=== PATIENT | female | born 1990 | race Caucasian/White ===

== ENCOUNTER 2022-04-18 10:35 | Emergency (ER) | payer BC, SELFPAY ==
[2022-04-18 11:35] VITALS: BP 122/61; PULSE 79; RESP 18; TEMP 36.5; O2SAT 98
--- NOTE | 2022-04-18 12:02 | ED.URI ---
HPI - URI/Sore Throat General Chief Complaint: Upper Respiratory Infection Stated Complaint: Sore Throat,Right Eye Irritation Time Seen by Provider: 04/18/22 12:02 History of Present Illness HPI Narrative: 31-year-old female presented for complaint of sore throat for 3 days. Endorses fever at the onset. She also endorses right eye redness and itching since last night. Denies crust or drainage, vision changes, or photophobia. She denies shortness of breath, wheezing, nausea, vomiting, diarrhea, fevers or chills at this time. She is not taking anything for symptoms. She denies sick contacts. Related Data Allergies Allergy/AdvReac Type Severity Reaction Status Date / Time No Known Allergies Allergy Verified 04/18/22 11:42 Review of Systems Review of Systems: CONSTITUTIONAL: Denies body aches, fever, chills, or sweats. EYES: Denies visual changes, endorses redness and itching right eye ENT: Denies rhinorrhea, congestion, or otalgia. CARDIOVASCULAR: Denies chest pain, palpitations, or edema. RESPIRATORY: Denies dyspnea. GASTROINTESTINAL: Denies abdominal pain, nausea, vomiting, or diarrhea. SKIN: Denies rash, itching, or wounds. MUSCULOSKELETAL: Denies back pain, joint pain, or myalgia. NEUROLOGIC: Denies headache Exam Narrative: GENERAL: well-appearing, no acute distress. EYES: right conjunctival injection, yellow drainage. EOMI. PERRLA ENT: Mucous membranes moist. TMs pearly gonzáles with normal light reflex bilaterally; no tragal tenderness. Oropharynx erythematous with Tonsillar enlargement 3+ with exudate. No drooling, no hoarseness, no trismus, uvula midline. No tripod positioning, hot potato voice, or soft palate swelling. NECK: Supple. Bilateral anterior cervical lymphadenopathy CHEST: Clear to auscultation, breath sounds equal. No respiratory distress, speaks in full sentences. HEART: Regular rate and rhythm. No murmur heard. SKIN: Warm, dry, no rash. NEURO: Alert and oriented x3. Course Course Emergency Course: Patient is aware of diagnosis, understands and agrees to treatment plan. Anticipatory guidance given. Patient agrees to follow-up as directed and is aware of reasons to seek care at the emergency department. Portions of this record may have been created with voice recognition software Level of Care: Express Care Visit Vital Signs Vital signs: Vital Signs Temperature 97.7 F 04/18/22 11:35 Pulse Rate 79 04/18/22 11:35 Respiratory Rate 18 04/18/22 11:35 Blood Pressure 122/61 04/18/22 11:35 Pulse Oximetry 98 04/18/22 11:35 Oxygen Delivery Room Air 04/18/22 11:35 Temperature 97.7 F 04/18/22 11:35 Pulse Rate 79 04/18/22 11:35 Respiratory Rate 18 04/18/22 11:35 Blood Pressure 122/61 04/18/22 11:35 Pulse Oximetry 98 04/18/22 11:35 Oxygen Delivery Room Air 04/18/22 11:35 MDM - URI/Sore Throat MDM Narrative Medical decision making narrative: Pos strep result reviewed with pt. Advise supportive treatments. Patient is appropriate for outpatient treatment and follow-up. Differential Diagnosis Differential diagnosis: Likely upper respiratory infection, viral infection and pharyngitis Lab Data Labs: Strep Screen Positive Group A Strep *(Reference Range: Negative)* Discharge Plan Discharge Clinical Impression: Strep pharyngitis, Acute bacterial conjunctivitis of right eye Patient Disposition: Home, Self-Care Condition: Stable Instructions: Antibiotic Form, Strep Throat (ED) Additional Instructions: - Take the antibiotic as directed. Fever and sore throat typically resolve within one to three days. Most patients can return to work after 24 hours of antibiotic therapy, provided you are fever free and otherwise well. -Eat and drink things that are easy to swallow, like soft foods, cool liquids, tea with honey, or popsicles . -Salt water gargles and/or may use topical anesthetic ( Chlo
== END 2022-04-18 12:45 | disposition home or self-care (01) ==
PROVIDERS: Emergency Provider Nurse Practitioner Family
DX: J02.0 Streptococcal pharyngitis (principal); H10.31 Unspecified acute conjunctivitis, right eye
CPT/HCPCS: 87880; 99203; G0463